=== PATIENT | female | born 1935 | race Caucasian/White ===

== ENCOUNTER 2018-01-22 14:15 | Observation (INO) ==
[2018-01-22] MEDS ORDERED: Aspirin 81 MG TAB.CHEW PO ONE (14:21)
--- NOTE | 2018-01-22 14:22 | Emergency Department Note ---
Disposition Clinical Impression: New onset a-fib Disposition: Admitted As Inpatient Condition: Good Referrals: NONE,PCP [Non-Partnered Physician] - Forms: ED Satisfaction Letter Time of Disposition: 15:23 Chest Pain HPI - General Chief Complaint: ED Chest Pain Stated Complaint: Chest Pain/ heart rate 144 Time Seen by Provider: 01/22/18 14:21 Source: patient, EMS Mode of arrival: EMS Limitations: no limitations Vital Signs Reviewed: Yes Nursing Notes Reviewed: Yes - History of Present Illness HPI Narrative: 82-year-old female presents today with intermittent chest pains the last 15-20 minutes. She was at [facility] and: Ambulance because of her chest pain. Yesterday she was actually in the hospital in [place] where she was visiting family, and she was observed for chest pain at that time. They told her that she is an irregular heartbeat and start her back on some medication but she is not sure which one. She states she took at this morning before she was discharged. She was driving back to [facility] to where she lives today when she started having chest pain again and they pulled over and called 911. Patient states that she now feels fine has no chest pain no discomfort. Pt complaint: chest pain - Related Data Home Medications Medication Instructions Recorded Confirmed Amlodipine Besylate 2.5 mg PO BID 01/22/18 01/22/18 Ascorbic Acid/Ascorbate Sodium 500 mg PO DAILY 01/22/18 01/22/18 [Vit C-Magalis Hips 500 mg Chew Tb] Aspirin [Lo-Dose Aspirin EC] 81 mg PO DAILY 01/22/18 01/22/18 Levothyroxine Sodium [Tirosint] 50 mcg PO DAILY 01/22/18 01/22/18 Magnesium Oxide [Mag-Oxide 1,000 mg PO DAILY 01/22/18 01/22/18 Magnesium] Metoprolol Tartrate [Lopressor] 50 mg PO DAILY 01/22/18 01/22/18 Nitroglycerin [Nitrostat] 0.4 mg SL Q5-10MIN PRN 01/22/18 01/22/18 [place]-3/Dha/Epa/Fish Oil [Fish Oil 1 each PO DAILY 01/22/18 01/22/18 1,000 mg Softgel] Omeprazole [PriLOSEC] 20 mg PO DAILY 01/22/18 01/22/18 PARoxetine HCl [Paroxetine HCl] 10 mg PO DAILY 01/22/18 01/22/18 Simvastatin [Zocor] 40 mg PO DAILY 01/22/18 01/22/18 Vit E/Vit E Mx/Squal/Phytostrl 1 each PO DAILY 01/22/18 01/22/18 [Mixed Tocotrienols 50 mg Sftgl] hydroCHLOROthiazide 25 mg PO DAILY 01/22/18 01/22/18 [Hydrochlorothiazide] Allergies Allergy/AdvReac Type Severity Reaction Status Date / Time tetracycline Allergy See Verified 01/22/18 15:20 Comments Review of Systems: All other systems are negative except as noted/marked Chart generated with voice recognition software Nursing notes reviewed Old records reviewed Physical Exam General: NAD, VSS Head: normocephalic, atraumatic Eyes: EOMI, PERRLA mouth: moist mucous membranes Neck: NO CLA, Supple Chest wall: normal rise, no crepitus, no deformity noted Lungs: moving air well, no distress Heart: Tachycardic and irregular Abd: soft, nontender, BS normal : deferred MSK: strength equal in all four extremities Ext: moves all four extremities, no obvious deformities Skin: cap refill normal, warm, dry neuro : CN2-12 grossly intact, A&Ox3 Psych: normal affect, not anxious Course Vital Signs Temperature 98.1 F 01/22/18 14:17 Pulse Rate 103 01/22/18 14:17 Respiratory Rate 16 01/22/18 14:17 Blood Pressure 133/77 01/22/18 14:17 O2 Sat by Pulse Oximetry 96 01/22/18 14:17 Temperature 98.1 F 01/22/18 14:17 Pulse Rate 103 01/22/18 14:17 Respiratory Rate 16 01/22/18 14:17 Blood Pressure 133/77 01/22/18 14:17 O2 Sat by Pulse Oximetry 96 01/22/18 14:17 Oxygen Delivery Oxygen Delivery Room Air Chest Pain - MDM Narrative Medical decision making narrative: 82-year-old female who presents today with intermittent chest pains. Her troponin same EKG is unremarkable except for new-onset A. fib. No ST elevation. I talked with her primary care physician she does not have an A. fib history. She is supposed to be taking metoprolol every day however she states she has not been taking it. She was told in the hospital yesterday that she should restart one of her medicines but she is not sure which one. She was there for high blood pressure and chest pain. She states this felt similar to that. Her blood pressures been fine here. We did give her dose of her by mouth Toprol here as her heart rate was in the high 90s to low 100s and irregular distally this would help. Speaking with her primary care physician he follows that she does not think to come in and get anticoagulated before he sees her in the offic e and he does not think that she should drive home even though she said that he wanted her there. I expanded the patient that he agrees with me that she needs to be admitted. I spoke with Dr. Abdullahi the hospitalist who agreed to accept the patient for her new onset A. fib. Lovenox was started in the department. - Medical Records Medical records reviewed: Yes I reviewed the patient's medical records. - Lab Data Lab results reviewed: Yes I reviewed the patient's lab results. Result diagrams: 01/22/18 14:30 01/22/18 14:30 Lab Results 01/22/18 01/22/18 01/22/18 Range/Units 14:30 14:30 14:30 WBC 9.3 (4.3-11.1) K/mcL RBC 4.98 H (3.82-4.97) M/mcL Hgb 15.3 (11.5-15.4) g/dL Hct 45.6 H (35.3-44.9) % MCV 91.6 (83.0-100.0) fL MCH 30.7 (28.0-33.3) pg MCHC 33.6 (31.6-35.5) g/dL RDW 12.6 (11.5-14.5) % Plt Count 259 (140-400) K/mcL MPV 10.0 (9.4-12.4) fL Immature Gran % 0.2 (0-4) % Seg Neutrophils % 56.2 % Lymphocytes % 34.3 % Monocytes % 8.5 % Eosinophils % 0.6 % Basophils % 0.2 % Neutrophils # 5.2 (1.6-8.9) K/mcL Lymphocytes # 3.2 (0.6-4.6) K/mcL Monocytes # 0.8 (0.0-1.3) K/mcL Eosinophils # 0.1 (0.0-0.6) K/mcL Basophils # 0.0 (0.0-0.2) K/mcL PT 11.8 (9.4-12.1) Seconds INR 1.0 APTT 33.1 (26.0-36.0) Seconds Sodium (136-145) mEq/L Potassium (3.5-5.1) mEq/L Chloride (98-107) mEq/L Carbon Dioxide (23-29) mEq/L BUN (8-23) mg/dL Creatinine (0.60-1.20) mg/dL Est GFR ( Amer) (> 60) Est GFR (Non-Af Amer) (> 60) BUN/Creatinine Ratio (6-26) Glucose (70-105) mg/dL Calculated Osmolality (280-300) Calcium (8.6-10.3) mg/dL Magnesium (1.6-2.6) mg/dL Troponin I (< 0.04) ng/mL B-Natriuretic Peptide 61 (Less than 100) pg/mL 01/22/18 01/22/18 Range/Units 14:30 14:40 WBC (4.3-11.1) K/mcL RBC (3.82-4.97) M/mcL Hgb (11.5-15.4) g/dL Hct (35.3-44.9) % MCV (83.0-100.0) fL MCH (28.0-33.3) pg MCHC (31.6-35.5) g/dL RDW (11.5-14.5) % Plt Count (140-400) K/mcL MPV (9.4-12.4) fL Immature Gran % (0-4) % Seg Neutrophils % % Lymphocytes % % Monocytes % % Eosinophils % % Basophils % % Neutrophils # (1.6-8.9) K/mcL Lymphocytes # (0.6-4.6) K/mcL Monocytes # (0.0-1.3) K/mcL Eosinophils # (0.0-0.6) K/mcL Basophils # (0.0-0.2) K/mcL PT (9.4-12.1) Seconds INR APTT (26.0-36.0) Seconds Sodium 140 (136-145) mEq/L Potassium 3.5 (3.5-5.1) mEq/L Chloride 102 (98-107) mEq/L Carbon Dioxide 29 (23-29) mEq/L BUN 18 (8-23) mg/dL Creatinine 0.93 (0.60-1.20) mg/dL Est GFR ( Amer) > 60 (> 60) Est GFR (Non-Af Amer) 58 L (> 60) BUN/Creatinine Ratio 19 (6-26) Glucose 99 (70-105) mg/dL Calculated Osmolality 292 (280-300) Calcium 10.6 H (8.6-10.3) mg/dL Magnesium 1.8 (1.6-2.6) mg/dL Troponin I < 0.03 (< 0.04) ng/mL B-Natriuretic Peptide (Less than 100) pg/mL - Radiology Data Radiology results reviewed: Yes I reviewed the patient's radiology results. EXAMINATION: SINGLE XRAY VIEW OF THE CHEST 01/22/2018 2:32 pm COMPARISON: None. HISTORY: ORDERING SYSTEM PROVIDED HISTORY: chest pain Acute symptoms. FINDINGS: Heart size is normal. The lungs are clear. No abnormal pulmonary vascular congestion. No adenopathy or pleural effusion. Severe thoracic scoliosis is present concave to the left. XR/XR chest 1V portable IMPRESSION: No acute abnormality. Clear lungs. Severe thoracic scoliosis. D/ / Vern Baig MD / Vern aBig MD Interpreting Provider: Vern Baig MD - EKG Data EKG attestation: Yes I reviewed and interpreted this EKG. EKG results narrative: EKG interpreted by myself as A. fib with a rate of [address] elevation Heart Score - Score History: Slightly Suspicious EKG: Non Specific repolarisation Disturbance Age: Greater than 65 Risk Factors: 1-2 risk factors Troponin: Less than normal limit HEART Score Total: 4
[2018-01-22 14:45] LABS: Basophils % 0.2 %; Eosinophils # 0.1 K/mcL (0.0-0.6); Eosinophils % 0.6 %; Hematocrit 45.6 % (35.3-44.9); Hemoglobin 15.3 g/dL (11.5-15.4); Immature Granulocytes % 0.2 % (0-4); Lymphocytes # 3.2 K/mcL (0.6-4.6); Lymphocytes % 34.3 %; Mean Corpuscular HGB Conc 33.6 g/dL (31.6-35.5); Mean Corpuscular Hemoglobin 30.7 pg (28.0-33.3); Mean Corpuscular Volume 91.6 fL (83.0-100.0); Monocytes # 0.8 K/mcL (0.0-1.3); Monocytes % 8.5 %; Neutrophils # 5.2 K/mcL (1.6-8.9); Platelet Count 259 K/mcL (140-400); Red Blood Count 4.98 M/mcL (3.82-4.97); Red Cell Distribution Width 12.6 % (11.5-14.5); Segmented Neutrophils % 56.2 %
[2018-01-22 14:53] LABS: Prothrombin Time 11.8 Seconds (9.4-12.1)
[2018-01-22 14:56] LABS: Activated Partial Thrombo Time 33.1 Seconds (26.0-36.0)
[2018-01-22 15:04] LABS: BUN/Creatinine Ratio 19 (6-26); Blood Urea Nitrogen 18 mg/dL (8-23); Calcium 10.6 mg/dL (8.6-10.3); Carbon Dioxide 29 mEq/L (23-29); Chloride 102 mEq/L (98-107); Glucose 99 mg/dL (70-105); Osmolality,Calculated 292 (280-300); Potassium 3.5 mEq/L (3.5-5.1); Sodium 140 mEq/L (136-145); eGFR For Non-African Americans 58 (> 60)
[2018-01-22 15:05] LABS: Troponin I < 0.03 ng/mL (< 0.04)
[2018-01-22] MEDS ORDERED: *HR* Enoxaparin 80 MG/0.8 ML SYRINGE SQ STA (15:15)
[2018-01-22] MEDS ORDERED: Nitroglycerin 0.4 MG TAB.SUBL SL PRN (15:53)
[2018-01-22] MEDS ORDERED: Naloxone 0.4 MG/ML INJ IVP PRN (15:53)
[2018-01-22] MEDS ORDERED: traMADol 50 MG TABLET PO PRN (15:53)
[2018-01-22] MEDS ORDERED: Acetaminophen 325 MG TABLET PO PRN (15:53)
--- NOTE | 2018-01-22 19:08 | Internal Med History&Physical ---
Date of Encounter: 01/22/18 Time of Encounter: 18:15 Assessment and Plan (1) Atrial fibrillation Current visit: Yes Status: Acute Likely new onset from history. TSH was normal in emergency room. Serial troponins have been ordered. She will be given Xarelto. Continue metoprolol. Ventricular response rate is acceptable at this time. Qualifiers: Atrial fibrillation type: unspecified Qualified Code(s): I48.91 - Unspecified atrial fibrillation (2) Weight loss Current visit: Yes Status: Acute CT of chest, abdomen, and pelvis will be done (3) Diarrhea Current visit: Yes Status: Acute CT of abdomen pelvis will be done. Qualifiers: Diarrhea type: unspecified type Qualified Code(s): R19.7 - Diarrhea, unspecified (4) Azotemia Current visit: Yes Status: Acute Duration unknown. Possibly due to in part to use of HCTZ. IV fluids will be given and renal indices checked in a.m. (5) Hypercalcemia Current visit: Yes Status: Acute Duration unknown. Check CMP in a.m. (6) DM type 2 (diabetes mellitus, type 2) Current visit: Yes Status: Chronic She does not know the name of her oral diabetic medication. Check hemoglobin A1c in a.m. Qualifiers: Diabetes mellitus longterm insulin use: without longterm use Diabetes mellitus complication status: with unspecified complications Qualified Code(s): E11.8 - Type 2 diabetes mellitus with unspecified complications (7) Hypothyroidism Current visit: Yes Status: Chronic TSH was normal in emergency room. Continue present dose Synthroid Qualifiers: Hypothyroidism type: unspecified Qualified Code(s): E03.9 - Hypothyroidism, unspecified (8) Hyperlipidemia Current visit: Yes Status: Chronic Check lipid profile in a.m. Qualifiers: Hyperlipidemia type: unspecified Qualified Code(s): E78.5 - Hyperlipidemia, unspecified Internal Medicine - H&P: HPI Chief complaint: Chest pain Admitted From: Emergency Dept Plans for Post Hospital Care: Home History of present illness: Ms. Lim is a 82 year old female who was brought by squad to emergency room from a local restaurant after she developed sudden onset of mid chest "squeezing" while riding in a car from [place] to her home in [facility]. She reports there was dyspnea associated with the pain. She was evaluated in emergency room and was found to have AF with RVR. She was admitted to [facility] floor for ongoing care needs. She reports she had a similar chest pain while visiting in [place] few days ago. She states she was hospitalized overnight and MN was ruled out. She denies being told there was any irregular heart beats. She states she was told the chest pain was due to hypertension. No additional hypertensive medication was prescribed at discharge. She reports she has had a similar pain on multiple occasions. She is uncertain if she has history of heart failure. She reports history of DVT approximately 20 years ago but does not recall details about workup or treatment. She denies known pulmonary embolus. She has not had past MN. Past Med Surg Social Fam HX - Past Medical History Medical history: atrial fibrillation, diabetes, GERD, hyperlipidemia, hypertension, thyroid disease, other Additional medical history: Left Carotid Psychiatric history: depression - Past Surgical History Additional surgical history: Colonoscopy, cataract sx. - Social History Smoking Status: Never smoker Smokeless Tobacco Status: No Alcohol use: none Drug use: none Internal Medicine - H&P: Meds Amlodipine Besylate 2.5 mg PO BID 01/22/18 [History] Ascorbic Acid/Ascorbate Sodium [Vit C-Magalis Hips 500 mg Chew Tb] 500 mg PO DAILY 01/22/18 [History] Aspirin [Lo-Dose Aspirin EC] 81 mg PO DAILY 01/22/18 [History] Levothyroxine Sodium [Tirosint] 50 mcg PO DAILY 01/22/18 [History] Magnesium Oxide [Mag-Oxide Magnesium] 1,000 mg PO DAILY 01/22/18 [History] Metoprolol Tartrate [Lopressor] 50 mg PO DAILY 01/22/18 [History] Nitroglycerin [Nitrostat] 0.4 mg SL Q5-10MIN PRN 01/22/18 [History] [place]-3/Dha/Epa/Fish Oil [Fish Oil 1,000 mg Softgel] 1 each PO DAILY 01/22/18 [History] Omeprazole [PriLOSEC] 20 mg PO DAILY 01/22/18 [History] PARoxetine HCl [Paroxetine HCl] 10 mg PO DAILY 01/22/18 [History] Simvastatin [Zocor] 40 mg PO DAILY 01/22/18 [History] Vit E/Vit E Mx/Squal/Phytostrl [Mixed Tocotrienols 50 mg Sftgl] 1 each PO DAILY 01/22/18 [History] hydroCHLOROthiazide [Hydrochlorothiazide] 25 mg PO DAILY 01/22/18 [History] Allergy/AdvReac Type Severity Reaction Status Date / Time tetracycline Allergy See Verified 01/22/18 15:20 Comments All Systems PM: A 10-system review of systems was performed and is negative for pertinent f indings except as documented above in the HPI. Review of systems: Gen.: She states her weight has decreased from approximately 175 pounds 5 years ago to 130 pounds at present. She reports a 20 pound weight loss in the past year. She states she has changed her diet and increased exercise a few years ago and feels this has contributed to her weight loss. Cardiovascular: As per history of present illness Respiratory: She is a lifelong nonsmoker and has no documented lung disease GI: She has had cholecystectomy. She denies disorders of her liver or exocrine pancreas. She states she has had diarrhea for approximately one year that has gradually worsened. She denies workup being done. : She denies hematuria dysuria or kidney stones Neurologic: She denies large distribution strokes or seizures. Endocrine: She was diagnosed with DM 2 approximately 20 years ago. She has hyperlipidemia and hypothyroidism. Hematology/oncology: She denies blood disorders cancers or anemia. Psychiatric: She has history of anxiety and depression. [place] skeletal: She has DJD but denies gout or other bone joint or muscle disorders. - Constitutional Vitals: Temp Pulse Resp BP Pulse Ox 98.3 F 87 20 115/74 93 01/22/18 16:14 01/22/18 16:14 01/22/18 16:14 01/22/18 16:14 01/22/18 16:14 Exam: Gen.: She is a well-developed well-nourished female resting comfortably in bed who appears in no acute distress. HEENT: Head is atraumatic and normocephalic. Eyes: EOMI. There is no scleral icterus. Mouth: Mucosa is moist. Neck: Supple and nontender. There is no thyromegaly or adenopathy noted. Heart: Irregularly irregular without murmurs or gallops Lungs: No wheezes or crackles are heard. Abdomen: Soft and nontender. No masses or guarding are noted. Extremities: There is no cyanosis edema or clubbing noted. Dorsalis pedis and posttibial pulses are trace palpable bilaterally. Neurologic: Mental status: She is talkative and a good historian. Cranial nerves: Smile is symmetric. Forehead wrinkles bilaterally. Tongue protrudes midline. EOMI. Motor: There is no pronator drift. Cerebellar: Finger to nose is intact bilaterally. Skin: Warm and dry Internal Med - H&P Results - Labs CBC & Chem 7: 01/22/18 14:30 01/22/18 14:30 Labs: Short CBC 01/22/18 Range/Units 14:30 WBC 9.3 (4.3-11.1) K/mcL Hgb 15.3 (11.5-15.4) g/dL Hct 45.6 H (35.3-44.9) % Plt Count 259 (140-400) K/mcL Neutrophils # 5.2 (1.6-8.9) K/mcL BMP 01/22/18 14:30 Sodium 140 Potassium 3.5 Chloride 102 Carbon Dioxide 29 BUN 18 Creatinine 0.93 Glucose 99 Calcium 10.6 H Cardiac Enzymes 01/22/18 Range/Units 14:30 Troponin I < 0.03 (< 0.04) ng/mL - Impressions ITS Impressions Chest X-Ray 01/22/18 14:21 IMPRESSION: No acute abnormality. Clear lungs. Severe thoracic scoliosis. D/ / Vern Baig MD / Vern Baig MD Interpreting Provider: Vern Baig MD
[2018-01-22] MEDS: 0.45 % Sodium Chloride w/KCl 20 MEQ/1,000 ML MLS IVC SCH (20:19)
[2018-01-22] MEDS ORDERED: amLODIPine 5 MG TABLET PO SCH (21:00)
[2018-01-23 02:55] LABS: Basophils # 0.1 K/mcL (0.0-0.2); Basophils % 0.6 %; Eosinophils # 0.1 K/mcL (0.0-0.6); Eosinophils % 1.2 %; Hematocrit 42.2 % (35.3-44.9); Immature Granulocytes % 0.2 % (0-4); Lymphocytes # 3.8 K/mcL (0.6-4.6); Lymphocytes % 44.3 %; Mean Corpuscular HGB Conc 33.2 g/dL (31.6-35.5); Mean Corpuscular Hemoglobin 30.5 pg (28.0-33.3); Mean Corpuscular Volume 91.9 fL (83.0-100.0); Mean Platelet Volume 10.2 fL (9.4-12.4); Monocytes # 0.7 K/mcL (0.0-1.3); Monocytes % 7.9 %; Neutrophils # 3.9 K/mcL (1.6-8.9); Platelet Count 253 K/mcL (140-400); Red Blood Count 4.59 M/mcL (3.82-4.97); Red Cell Distribution Width 12.8 % (11.5-14.5); Segmented Neutrophils % 45.8 %
[2018-01-23 03:04] LABS: INR 1.1; Prothrombin Time 12.1 Seconds (9.4-12.1)
[2018-01-23 03:06] LABS: Activated Partial Thrombo Time 35.1 Seconds (26.0-36.0)
[2018-01-23 03:15] LABS: Chol/HDL Ratio 4.5 (0-4.9); Phosphorous 3.3 mg/dL (2.7-4.5)
[2018-01-23 03:16] LABS: Alanine Aminotransferase 20 Units/L (7-52); Albumin 3.8 g/dL (3.5-5.7); Albumin/Globulin Ratio 1.3 (1.1-2.2); Alkaline Phosphatase 57 Units/L (34-104); Aspartate Amino Transferase 29 Units/L (13-39); BUN/Creatinine Ratio 20 (6-26); Bilirubin,Total 0.5 mg/dL (0.3-1.0); Blood Urea Nitrogen 16 mg/dL (8-23); Calcium 9.5 mg/dL (8.6-10.3); Carbon Dioxide 25 mEq/L (23-29); Chloride 105 mEq/L (98-107); Glucose 142 mg/dL (70-105); Osmolality,Calculated 290 (280-300); Potassium 3.7 mEq/L (3.5-5.1); Sodium 138 mEq/L (136-145); Total Protein 6.8 g/dL (6.4-8.9); eGFR For Non-African Americans > 60 (> 60)
[2018-01-23] MEDS: 0.45 % Sodium Chloride w/KCl 20 MEQ/1,000 ML MLS IVC SCH (05:48)
[2018-01-23 07:25] VITALS: BP 111/71
[2018-01-23] MEDS ORDERED: hydroCHLOROthiazide 25 MG TABLET PO SCH (09:00)
[2018-01-23] MEDS ORDERED: Aspirin Enteric Coated 81 MG Tablet PO SCH (09:00)
--- NOTE | 2018-01-23 10:08 | Discharge Summary ---
Orders not resulted at time of discharge: Pending orders 01/23/18 02:30 Hgb A1C AM 0400 01/23/18 08:30 Troponin I Q6H Date of Encounter: 01/23/18 Time of Encounter: 10:00 - Discharge Diagnosis (1) Atrial fibrillation Priority: Primary Status: Resolved Qualifiers: Atrial fibrillation type: unspecified Qualified Code(s): I48.91 - Unspecified atrial fibrillation (2) Weight loss Priority: Secondary Status: Chronic (3) Diarrhea Priority: Secondary Status: Chronic Qualifiers: Diarrhea type: unspecified type Qualified Code(s): R19.7 - Diarrhea, unspecified (4) Azotemia Priority: Secondary Status: Resolved (5) Hypercalcemia Priority: Secondary Status: Resolved (6) DM type 2 (diabetes mellitus, type 2) Priority: Secondary Status: Chronic Qualifiers: 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 Lim is a 82 year old female who was brought by squad to emergency room from a local restaurant after she developed sudden onset of mid chest "squeezing" while riding in a car from [place] to her home in [facility]. She reports there was dyspnea associated with the pain. She was evaluated in emergency room and was found to have AF with RVR. She was admitted to [facility] for ongoing care needs. Initial orders written by the emergency room physician. I saw her the evening of January 22 and performed a history and physical. She was given a dose of Xarelto. D-dimer returned and age-adjusted normal range at 714. Chest, abdomen, and pelvis CT were ordered to further evaluate. Numerous noncalcified, calcified, and partially calcified nodules were noted in the lungs felt to be most likely post inflammatory or infectious. It was recommended a follow-up scan in 3 months be done to document clearance. Low-density lesions in the kidneys most likely representing kidney cyst were noted. No other acute abnormality's were seen. She converted back to normal sinus rhythm remained in this for several hours prior to discharge. IV fluids were given and hydrochlorothiazide was held. Azotemia resolved on follow-up labs January 23 with BUN and creatinine decreased to 16 and 0.81 respectively with estimated GFR greater than 60. Hypercalcemia resolved on follow-up labs at 9.5. Hemoglobin A1c was ordered with results pending at time of discharge. Serial troponin showed no evidence of myocardial damage. On January 23 she was asymptomatic and felt stable for discharge. I told her the etiology of her chest pain was not determined with certainty. Her PCP can order further workup as needed. Further evaluation for diarrhea and weight loss can also be done by her PCP. She will follow with her PCP within 1 week. He can order follow-up chest CT within 3 months as recommended above to follow-up on pulmonary nodules. He also can determine the oral anticoagulant for treatment of paroxysmal atrial fibrillation. Her blood pressure remained borderline low during hospitalization to she will remain off hydrochlorothiazide and amlodipine at discharge. - Time Spent with Patient Total time spent providing and/or coordinating discharge services: - Discharge Medications Home Medications: Ascorbic Acid/Ascorbate Sodium [Vit C-Magalis Hips 500 mg Chew Tb] 500 mg PO DAILY 01/22/18 [History] Aspirin [Lo-Dose Aspirin EC] 81 mg PO DAILY 01/22/18 [History] Levothyroxine Sodium [Tirosint] 50 mcg PO DAILY 01/22/18 [History] Magnesium Oxide [Mag-Oxide Magnesium] 1,000 mg PO DAILY 01/22/18 [History] Metoprolol Tartrate [Lopressor] 50 mg PO DAILY 01/22/18 [History] Nitroglycerin [Nitrostat] 0.4 mg SL Q5-10MIN PRN 01/22/18 [History] [place]-3/Dha/Epa/Fish Oil [Fish Oil 1,000 mg Softgel] 1 each PO DAILY 01/22/18 [History] Omeprazole [PriLOSEC] 20 mg PO DAILY 01/22/18 [History] PARoxetine HCl [Paroxetine HCl] 10 mg PO DAILY 01/22/18 [History] Simvastatin [Zocor] 40 mg PO DAILY 01/22/18 [History] Vit E/Vit E Mx/Squal/Phytostrl [Mixed Tocotrienols 50 mg Sftgl] 1 each PO DAILY 01/22/18 [History] Allergies/Adverse Reactions: Allergy/AdvReac Type Severity Reaction Status Date / Time tetracycline Allergy See Verified 01/22/18 15:20 Comments Date of admission: 01/22/18 15:45 Primary care physician: Alfred Peralta Consults: 01/22/18 16:32 Consult to Nutrition [CONS] Routine Comment: Consulting Provider: NUTRITION Reason for Dietary Consult: MST Score - Constitutional Vitals: Temp Pulse Resp BP Pulse Ox 98.2 F 54 18 111/71 94 01/23/18 06:59 01/23/18 06:59 01/23/18 06:59 01/23/18 06:59 01/23/18 06:59 - Patient Status Disposition: Home, Self-Care Condition: Good - Discharge Instructions Follow Up With: Alfred Peralta [Other] - 1 week - Diet and Activity Activity: resume usual activities as tolerated Diet: advance to your usual diet
[2018-01-23 11:59] LABS: Estimated Average Glucose 140 mg/dl; Hemoglobin A1C 6.5 %
[2018-01-23] MEDS ORDERED: *HR* Rivaroxaban 15 MG TABLET PO SCH (17:00)
--- NOTE | 2018-01-23 17:09 | Electrocardiograph Report ---
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
--- NOTE | 2018-01-23 17:34 | Electrocardiograph Report ---
[place] [address] Test Date: 2018-01-23 Pat Name: July Lim Department: [id number] Room: [facility] Gender: F Loan Processing Supervisor: John : 1935 Requested By: Chantel Loyola Order Number: [id number] Reading MD: Damian Wong Measurements Intervals [place] Rate: 58 P: 82 WI: 200 QRS: 8 QRSD: 84 T: 24 QT: 436 QTc: 434 Interpretive Statements SINUS BRADYCARDIA WITH SINUS ARRHYTHMIA Electronically Signed On 01-23-2018 17:32:50 EST by Damian Wong
== END 2018-01-23 12:43 | disposition home or self-care (01) ==
LOC: EMEROOPIK 14:15 → INPPIK 14:15
PROVIDERS: ADMIT Internal Medicine; ATTEND Internal Medicine